=== PATIENT | male | born 1995 | race Caucasian/White ===

== ENCOUNTER 2016-11-13 20:32 | Emergency (ER) | payer MEDICAID ==
[2016-11-13 20:41] VITALS: BMI 28.1
[2016-11-13 20:45] VITALS: BP 168/79; PULSE 95; RESP 19; TEMP 98; O2SAT 100
--- NOTE | 2016-11-13 21:17 | ED PDOC ---
Arrival/HPI <Cullen Hein - Last Filed: 11/13/16 23:20> - General Historian: Patient - History of Present Illness Time/Duration: 24 hours Symptom Onset: Gradual Symptom Course: Unchanged Quality: Aching, Pressure Severity Level: 6 Activities at Onset: Rest Context: Home <Yolanda Cotto - Last Filed: 11/14/16 19:26> - General Chief Complaint: Back Pain Time Seen by Provider: 11/13/16 21:06 - History of Present Illness Narrative History of Present Illness (Text): 11/13/16 21:23 This is a 21Y M with no PMH here for L sided abdominal pain that radiates to his back. He states that he woke up this morning and began feeling the pain on his L side. He denies trauma, lifting heavy objects or sleeping on that side. The patient also says when he wakes up in the morning he gets a sour taste in his mouth and also feels epigastric pain after he eats. At this time he feels a little nauseous. He does admit that his stool has been floating the past 2 weeks. He denies blood or dark stool, constipation, diarrhea, CP, SOB, vomiting , dysuria or hematuria, fever or chills. The patient says a few years ago he was having lower abdominal pain and had a colonoscopy which was normal. ( Yolanda Cotto) Past Medical History - Provider Review Nursing Documentation Reviewed: Yes - Infectious Disease Hx of Infectious Diseases: None - Tetanus Immunization Tetanus Immunization: Unknown - Past Medical History Past Medical History: No Previous - Psychiatric Hx Depression: No Hx Emotional Abuse: No Hx Physical Abuse: No Hx Substance Use: No - Past Surgical History Past Surgical History: No Previous - Surgical History Other/Comment: deviated septum sx - Anesthesia Hx Anesthesia: Yes Hx Anesthesia Reactions: No - Suicidal Assessment Feels Threatened In Home Enviroment: No <Yolanda Cotto - Last Filed: 11/14/16 19:26> Family/Social History - Physician Review Nursing Documentation Reviewed: Yes Family/Social History: No Known Family HX Smoking Status: Heavy Smoker > 10 Cigarettes Daily Hx Alcohol Use: No Hx Substance Use: No Hx Substance Use Treatment: No <Yolanda Cotto - Last Filed: 11/14/16 19:26> Allergies/Home Meds <Cullen Hein - Last Filed: 11/13/16 23:20> <Yolanda Cotto - Last Filed: 11/14/16 19:26> Allergies/Adverse Reactions: Allergies No Known Allergies Allergy (Verified 11/13/16 20:41) Review of Systems - Physician Review All systems were reviewed & negative as marked: Yes - Review of Systems Constitutional: Normal. absent: Weight Change, Fevers Respiratory: Normal. absent: SOB, Cough Cardiovascular: Normal. absent: Chest Pain, Palpitations, Edema Gastrointestinal: Abdominal Pain (LUQ radiates to back ), Stool Changes ( floating stool ), Nausea. absent: Constipation, Diarrhea, Vomiting, Hematochezia, Hematemesis Genitourinary Male: Normal. absent: Dysuria, Frequency, Hematuria Musculoskeletal: Back Pain Skin: Normal Neurological: Normal. absent: Headache, Dizziness <Yolanda Cotto - Last Filed: 11/14/16 19:26> Physical Exam Vital Signs Reviewed: Yes Temperature: Afebrile Blood Pressure: Normal Pulse: Regular Respiratory Rate: Normal Appearance: Positive for: Well-Appearing, Non-Toxic, Comfortable Pain Distress: None Mental Status: Positive for: Alert and Oriented X 3 - Systems Exam Head: Present: Atraumatic, Normocephalic Pupils: Present: PERRL Extroacular Muscles: Present: EOMI Conjunctiva: Present: Normal Mouth: Present: Moist Mucous Membranes Neck: Present: Normal Range of Motion Respiratory/Chest: Present: Clear to Auscultation, Good Air Exchange. No: Respiratory Distress, Accessory Muscle Use Cardiovascular: Present: Regular Rate and Rhythm, Normal S1, S2. No: Murmurs, Rub, Gallop Abdomen: Present: Tenderness (epigastric and LUQ), Normal Bowel Sounds. No: Distention, Peritoneal Signs Back: Present: Paraspinal Tenderness Upper Extremity: Present: Normal Inspection. No: Cyanosis, Edema Lower Extremity: Present: Normal Inspection. No: Edema Neurological: Present: GCS=15, CN II-XII Intact, Speech Normal Skin: Present: Warm, Dry, Normal Color <Yolanda Cotto - Last Filed: 11/14/16 19:26> Vital Signs Temp Pulse Resp BP Pulse Ox 11/13/16 20:44 98.0 F 95 H 19 168/79 H 100 Medical Decision Making - Lab Interpretations I have reviewed the lab results: Yes <Angel LuisCullen - Last Filed: 11/13/16 23:20> Re-evaluation Time: 23:32 Reassessment Condition: Improved - Lab Interpretations I have reviewed the lab results: Yes Interpretation: All labs normal - RAD Interpretation Oim Architect: Radiologist <Yolanda Cotto - Last Filed: 11/14/16 19:26> ED Course and Treatment: Impression: Pt seen and evaluated with internist medical doctor md. Pt, with no significant past medical history, presented for left-sided abdominal pain radiating to his left flank. Pt also complaining of nausea. Aware and agree with HPI, clinical findings, plan, and management. Plan: -- US Gallbladder and Pancreas -- Labs, lipase, amylase -- Zofran -- Protonix -- Reassess and disposition 11/13/16 23:20 Reviewed sono, US Gallbladder and Pancreas shows: Liver: Liver is unremarkable.There is hepatopedal flow in the main portal vein. Gallbladder: Gallbladder is partially distended with no stones, sludge or wall thickening. Common bile duct: Common bile duct measures approximately 5 mm in diameter. Pancreas: Pancreas is obscured by bowel gas. Right kidney: Right kidney is unremarkable. Aorta: Visualized portions of the aorta and inferior vena cava are unremarkable. IMPRESSION: No gallstones or ductal dilatation; the pancreas obscured by bowel gas Patient was not tender over the gallbladder. (Cullen Hein) 11/13/16 21:28 Impression: This is a 21y M with no PMH here for LUQ pain that radiates to his back, reflux symptoms and floating stools. He denies vomiting, stool changes, diarrhea, fever or chills, dysuria or hematuria. Differential Diagnosis included but are not limited to: gastritis vs. pancreatitis vs. cholecystitis vs. GERD Plan: -- CBC, CMP, amylase, lipase -- Abdominal U/S -- Zofran, Protonix -- Reassess and disposition Prior Visits: Notes and results from previous visits were reviewed. Progress Notes: 11/13/16 23:32 Patient reports still having pain and burping. Simethicone and Toradol ordered. Gallbladder and pancreatic u/s showed gas. No acute findings. 11/14/16 19:26 Biottery went down during documentation. Please refer to paper chart. (Yolanda Cotto) - Lab Interpretations Lab Results: 11/13/16 21:26 11/13/16 21:26 Lab Results 11/13/16 21:26: Sodium 139, Potassium 3.7, Chloride 100, Carbon Dioxide 28, Anion Gap 15, BUN 17, Creatinine 1.2, Est GFR ( Amer) > 60, Est GFR (Non- Af Amer) > 60, Random Glucose 80, Calcium 8.9, Total Bilirubin 0.7, AST 22, ALT 36, Alkaline Phosphatase 46, Total Protein 8.0, Albumin 4.2, Globulin 3.7, Albumin/Globulin Ratio 1.1, Amylase 111, Lipase 108 11/13/16 21:26: WBC 6.9, RBC 5.44, Hgb 16.3, Hct 46.4, MCV 85.3, MCH 30.0, MCHC 35.1, RDW 13.0, Plt Count 196, MPV 9.9 - RAD Interpretation Narrative RAD Interpretations (Text): 11/13/16 23:32 11/13/16 23:32 EXAM: US Abdomen Limited, Right Upper Quadrant CLINICAL HISTORY: 21 years old, male; Pain; Abdominal pain; Generalized; Additional info: Luq pain radiates to back TECHNIQUE: Real-time ultrasound of the right upper quadrant with image documentation. EXAM DATE/TIME: 11/13/2016 9:08 PM COMPARISON: There are no prior studies for comparison. FINDINGS: Liver: Liver is unremarkable.There is hepatopedal flow in the main portal vein. Gallbladder: Gallbladder is partially distended with no stones, sludge or wall thickening. Common bile duct: Common bile duct measures approximately 5 mm in diameter. Pancreas: Pancreas is obscured by bowel gas. Right kidney: Right kidney is unremarkable. Aorta: Visualized portions of the aorta and inferior vena cava are unremarkable. IMPRESSION: No gallstones or ductal dilatation; the pancreas obscured by bowel gas Patient was not tender over the gallbladder 11/13/16 23:32 (Yolanda Cotto) Radiology Orders: 11/13/16 21:08 GALLBLADDER & PANCREAS [US] Stat - Medication Orders Current Medication Orders: Discontinued Medications Ketorolac Tromethamine (Toradol) 30 mg IVP STAT STA Stop: 11/13/16 23:31 Ondansetron HCl (Zofran Inj) 4 mg IVP STAT STA Stop: 11/13/16 21:09 Last Admin: 11/13/16 21:40 Dose: 4 mg Pantoprazole Sodium (Protonix Inj) 40 mg IVP STAT STA Stop: 11/13/16 21:09 Last Admin: 11/13/16 21:40 Dose: 40 mg Simethicone (Mylicon Chew Tab) 80 mg PO PCHS STA Stop: 11/13/16 23:31 - PA / CLARIFYING PLANT OPERATOR / Resident Statement YANNI has reviewed & agrees with the documentation as recorded. / has examined the patient and agrees with the treatment plan. <Cullen Hein - Last Filed: 11/13/16 23:20> Disposition/Present on Arrival <Cullen Hein - Last Filed: 11/13/16 23:20> - Present on Arrival Any Indicators Present on Arrival: No History of DVT/PE: No History of Uncontrolled Diabetes: No Urinary Catheter: No History of Decub. Ulcer: No History Surgical Site Infection Following: None - Disposition Have Diagnosis and Disposition been Completed?: Yes Disposition Time: 23:35 Patient Plan: Discharge <Yolanda Cotto - Last Filed: 11/14/16 19:26> - Disposition Diagnosis: GERD (gastroesophageal reflux disease), Gas pain Disposition: HOME/ ROUTINE Patient Problems: Current Active Problems Problem Status Onset GERD (gastroesophageal reflux disease) Acute Gas pain Acute Condition: GOOD Discharge Instructions (ExitCare): Gastroesophageal Reflux Disease (ED), Gas and Bloating (ED) Print Language: NICARAGUAN Additional Instructions: Leonid Jyothi Farah, thank you for letting us take care of you today. Your provider was Dr. Cotto. You were treated for abdominal pain. The emergency medical care you received today was directed at your acute symptoms. If you were prescribed any medication, please fill it and take as directed. It may take several days for your symptoms to resolve. Return to the Emergency Department if your symptoms worsen, do not improve, or if you have any other problems. Please contact your doctor or call one of the physicians/clinics you have been referred to that are listed on the Patient Visit Information form that is included in your discharge packet. Bring any paperwork you were given at discharge with you along with any medications you are taking to your follow up visit. Our treatment cannot replace ongoing medical care by a primary care provider (PCP) outside of the emergency department. Thank you for allowing the [facility] team to be part of your care today. Prescriptions: Pantoprazole Sodium [Protonix] 40 mg PO DAILY #10 ect Simethicone [Gas Relief] 80 mg PO BID PRN #[id number] PRN Reason: Dyspepsia Referrals: Geno Dneg [Primary Care Provider] - Follow up with primary
[2016-11-13 21:53] LABS: HEMATOCRIT 46.4 % (42.0-52.0); MEAN CELL VOLUME 85.3 fL (80.0-105.0); MEAN CORPUSCULAR HGB CONC 35.1 g/dl (31.0-37.0); MEAN PLATELET VOLUME 9.9 fl (7.0-11.0); WHITE BLOOD COUNT 6.9 10^3/ul (4.5-11.0)
[2016-11-13 22:10] LABS: ALB/GLOB RATIO 1.1 (1.1-1.8); ALKALINE PHOSPHATASE 46 U/L (38-133); ALT/SGPT 36 U/L (7-56); AMYLASE 111 U/L (35-125); AST/SGOT 22 U/L (15-59); BILIRUBIN,TOTAL 0.7 mg/dL (0.2-1.3); BLOOD UREA NITROGEN 17 mg/dL (7-21); CALCIUM 8.9 mg/dL (8.4-10.5); CARBON DIOXIDE 28 mmol/L (21-33); CHLORIDE 100 mmol/L (98-107); GFR AFRICAN-AMERICAN > 60; GLUCOSE,RANDOM 80 mg/dL (70-110); LIPASE 108 U/L (23-300); POTASSIUM 3.7 mmol/L (3.6-5.0); SODIUM 139 mmol/L (132-148)
--- NOTE | 2016-11-13 23:15 | US ---
EXAM: US Abdomen Limited, Right Upper Quadrant CLINICAL HISTORY: 21 years old, male; Pain; Abdominal pain; Generalized; Additional info: Luq pain radiates to back TECHNIQUE: Real-time ultrasound of the right upper quadrant with image documentation. EXAM DATE/TIME: 11/13/2016 9:08 PM COMPARISON: There are no prior studies for comparison. FINDINGS: Liver: Liver is unremarkable.There is hepatopedal flow in the main portal vein. Gallbladder: Gallbladder is partially distended with no stones, sludge or wall thickening. Common bile duct: Common bile duct measures approximately 5 mm in diameter. Pancreas: Pancreas is obscured by bowel gas. Right kidney: Right kidney is unremarkable. Aorta: Visualized portions of the aorta and inferior vena cava are unremarkable. IMPRESSION: No gallstones or ductal dilatation; the pancreas obscured by bowel gas Patient was not tender over the gallbladder
[2016-11-13] MEDS ORDERED: Simethicone 80 mg Chewtab PO STA (23:30)
== END 2016-11-14 23:07 | disposition home or self-care (01) ==
LOC: ED 20:32
DX: K21.9 Gastro-esophageal reflux disease without esophagitis (principal); R14.1 Gas pain
CPT/HCPCS: 76705; 80053; 81003; 82150; 83690; 85027; 96374; 96375; 99284; C9113; J2405

== ENCOUNTER 2018-03-17 19:56 | Emergency (ER) | payer MEDICAID ==
[2018-03-17 20:05] VITALS: BMI 27.5
[2018-03-17] MEDS ORDERED: Sodium Chloride 0.9% 1,000 ML IV STA (20:45)
[2018-03-17 21:11] LABS: HEMOGLOBIN 15.8 g/dL (14.0-18.0); MEAN CELL VOLUME 87.4 fl (80.0-105.0); MEAN CORPUSCULAR HEMOGLOBIN 30.2 pg (25.0-35.0); MEAN CORPUSCULAR HGB CONC 34.5 g/dl (31.0-37.0); MEAN PLATELET VOLUME 9.6 fl (7.0-11.0); RBC 5.24 10^6/uL (3.5-6.1); RED CELL DISTRIBUTION WIDTH 12.7 % (11.5-14.5); WHITE BLOOD COUNT 12.8 10^3/ul (4.5-11.0)
[2018-03-17 21:17] LABS: BLOOD UREA NITROGEN 13 mg/dL (7-21); CALCIUM 8.9 mg/dL (8.4-10.5); GFR NON-AFRICAN AMERICAN > 60
[2018-03-17] MEDS ORDERED: Penicillin G Benzathine 1.2 Mill Unit/2 ml Syr IM ONE (22:13)
--- NOTE | 2018-03-17 22:21 | ED PDOC ---
Arrival/HPI - General Chief Complaint: Fever Time Seen by Provider: 03/17/18 20:39 Historian: Patient - History of Present Illness Narrative History of Present Illness (Text): 03/17/18 20:45 Jyothi Farah is a 22 year old male, with no significant past medical history , who presents to the Emergency department complaining of sore throat with associated low-grade fever, headache, and body aches since yesterday and throughout today. Patient states he also feels somewhat dehydrated. Patient denies any difficulty swallowing, chest pain, shortness of breath, nausea, vomiting, diarrhea, urinary symptoms, back pain, neck pain, dizziness, or any other complaints. Symptom Onset: Gradual Symptom Course: Unchanged Activities at Onset: Light Context: Home Past Medical History - Provider Review Nursing Documentation Reviewed: Yes - Infectious Disease Hx of Infectious Diseases: None - Tetanus Immunization Tetanus Immunization: Unknown - Past Medical History Past Medical History: No Previous - Psychiatric Hx Depression: No Hx Emotional Abuse: No Hx Physical Abuse: No Hx Substance Use: No - Past Surgical History Past Surgical History: No Previous - Surgical History Other/Comment: deviated septum sx - Anesthesia Hx Anesthesia: Yes Hx Anesthesia Reactions: No - Suicidal Assessment Feels Threatened In Home Enviroment: No Family/Social History - Physician Review Nursing Documentation Reviewed: Yes Family/Social History: Unknown Family HX Smoking Status: Former Smoker Hx Alcohol Use: No Hx Substance Use: No Hx Substance Use Treatment: No Allergies/Home Meds Allergies/Adverse Reactions: Allergies No Known Allergies Allergy (Verified 11/13/16 20:41) Home Medications: Home Meds Medication Instructions Recorded Confirmed No Known Home Med 03/17/18 03/17/18 Review of Systems - Physician Review All systems were reviewed & negative as marked: Yes - Review of Systems Constitutional: Fevers Eyes: Normal ENT: Sore Throat Respiratory: Normal Cardiovascular: Normal Gastrointestinal: Normal Genitourinary Male: Normal Musculoskeletal: Myalgias Skin: Normal Neurological: Headache. absent: Dizziness Endocrine: Normal Hemo/Lymphatic: Normal Psychiatric: Normal Physical Exam Vital Signs Reviewed: Yes Vital Signs Temp Pulse Resp BP Pulse Ox 03/17/18 22:58 100.1 F H 98 H 18 112/71 98 03/17/18 21:10 102.0 F H 03/17/18 20:05 101.3 F H 110 H 20 108/86 100 Temperature: Febrile Blood Pressure: Normal Pulse: Regular Respiratory Rate: Normal Appearance: Positive for: Well-Appearing, Non-Toxic, Comfortable Pain Distress: None Mental Status: Positive for: Alert and Oriented X 3 - Systems Exam Head: Present: Atraumatic, Normocephalic Pupils: Present: PERRL Extroacular Muscles: Present: EOMI Conjunctiva: Present: Normal Ears: Present: Normal, NORMAL TM, Normal Canal. No: Erythema, TM Bulging, Fluid , TM Perf Mouth: Present: Moist Mucous Membranes Pharnyx: Present: ERYTHEMA (Erythema to posterior pharynx and tonsils bilaterally), EXUDATE (Scanty left tonsillar exudate). No: TONSILS ENLARGED, Peritonsilar Swelling, Uvular Deviation, Muffled/Hoarse Voice, Strider, Soft Palate/Uvular Edema Neck: Present: Normal Range of Motion. No: Meningeal Signs Respiratory/Chest: Present: Clear to Auscultation, Good Air Exchange. No: Respiratory Distress, Accessory Muscle Use Cardiovascular: Present: Regular Rate and Rhythm, Normal S1, S2. No: Murmurs Abdomen: No: Tenderness, Distention, Peritoneal Signs Back: Present: Normal Inspection Upper Extremity: Present: Normal Inspection. No: Cyanosis, Edema Lower Extremity: Present: Normal Inspection. No: Edema Neurological: Present: GCS=15, CN II-XII Intact, Speech Normal, Motor Func Grossly Intact, Normal Sensory Function Skin: Present: Warm, Dry, Normal Color. No: Rashes Psychiatric: Present: Alert, Oriented x 3, Normal Insight, Normal Concentration Medical Decision Making ED Course and Treatment: 03/17/18 20:45 Impression: 22 year old male complaining of low-grade fever, sore throat, headaches, and body aches. Differential Diagnosis included but are not limited to: tonsillitis vs. pharyngitis Plan: -- IV fluids -- Tylenol -- Bicillin -- Reassess and disposition Progress Notes: 03/17/18 22:35 On re-evaluation, patient states he feels much better following IV hydration. Patient is well-appearing, in no acute distress. Discussed plan with the patient , who expresses understanding. Patient in agreement with plan to be discharged home. Patient is stable for discharge. Patient was instructed to follow up with physician or return if symptoms worsen or new concerning symptoms arise. - Lab Interpretations Lab Results: 03/17/18 20:56 03/17/18 20:56 Lab Results 03/17/18 20:56: Sodium 135, Potassium 4.3, Chloride 99, Carbon Dioxide 29, Anion Gap 12, BUN 13, Creatinine 1.4, Est GFR ( Amer) > 60, Est GFR (Non- Af Amer) > 60, Random Glucose 110, Calcium 8.9 03/17/18 20:56: WBC 12.8 H D, RBC 5.24, Hgb 15.8, Hct 45.8, MCV 87.4, MCH 30.2, MCHC 34.5, RDW 12.7, Plt Count 167, MPV 9.6 - Medication Orders Current Medication Orders: Discontinued Medications Acetaminophen (Tylenol 325mg Tab) 650 mg PO STAT STA Stop: 03/17/18 20:46 Last Admin: 03/17/18 20:55 Dose: 650 mg Sodium Chloride (Sodium Chloride 0.9%) 1,000 mls @ 999 mls/hr IV .Q1H1M STA Stop: 03/17/18 21:45 Last Admin: 03/17/18 20:56 Dose: 999 mls/hr eMAR Start Stop Document 03/17/18 20:56 HI ([facility]18 [id number] Intravenous Solution Start Date 03/17/18 Start Time 20:56 Penicillin G Benzathine (Bicillin L-A Inj) 1,200,000 units IM ONCE ONE PRN Reason: Protocol Stop: 03/17/18 22:14 Last Admin: 03/17/18 22:58 Dose: 1,200,000 units IM Administration Charges Document 03/17/18 22:58 HI (Rec: 03/17/18 22:58 SD [id number]) Injection Site MAR Injection Site Left Deltoid Charges for Administration # of IM Administrations 1 - Scribe Statement The provider has reviewed the documentation as recorded by the Divina Louise Provider Scribe Attestation: All medical record entries made by the Scribe were at my direction and personally dictated by me. I have reviewed the chart and agree that the record accurately reflects my personal performance of the history, physical exam, medical decision making, and the department course for this patient. I have also personally directed, reviewed, and agree with the discharge instructions and disposition. Disposition/Present on Arrival - Present on Arrival Any Indicators Present on Arrival: No History of DVT/PE: No History of Uncontrolled Diabetes: No Urinary Catheter: No History of Decub. Ulcer: No History Surgical Site Infection Following: None - Disposition Have Diagnosis and Disposition been Completed?: Yes Diagnosis: Tonsillitis Disposition: HOME/ ROUTINE Disposition Time: 22:39 Patient Plan: Discharge Condition: STABLE Additional Instructions: Rest/drink plenty of liquids/Tylenol as directed/follow up with your doctor this week Referrals: Marichuy Little MD [Primary Care Provider] - Follow up with primary Forms: [facility] ([place])
[2018-03-17 22:59] VITALS: BP 112/71; PULSE 98; RESP 18; TEMP 100.1; O2SAT 98
== END 2018-03-17 23:07 | disposition home or self-care (01) ==
LOC: ED 19:56
DX: J03.90 Acute tonsillitis, unspecified (principal); Z87.891 Personal history of nicotine dependence
CPT/HCPCS: 80048; 85027; 96372; 99285; J0561; J7030